=== PATIENT | female | born 1995 | race Caucasian/White ===

== ENCOUNTER 2017-03-27 22:13 | Emergency (ER) | payer SELFPAY ==
[~2017-03-27] VITALS: Ht 170.2 cm; Wt 56.7 kg
[2017-03-27] MEDS ORDERED: IBUPROFEN600 MG ORAL (23:55)
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
[2017-03-27 23:59] VITALS: BP 139/102
--- NOTE | 2017-03-28 11:07 | Diagnostic Imaging Report ---
Indication: And trauma Technique: Continuous helical CT scanning of the head was performed without intravenous contrast material. Axial and coronal 5 mm sections were generated. Radiation dose was minimized using automated exposure control Dose: Total Dose Length Product - DLP 1263.[address] Dose Index - CTDIvol(s) 70.38 mGy. Comparison: none Findings: The ventricular system is normal in size and configuration. There is no shift of midline structures. No abnormal extra-axial fluid collections are noted. There is no evidence of intracerebral bleeding. No other abnormal high or low density areas are noted within the brain. Intact calvarium. There is a nasal fracture. Visualized orbits and sinuses are unremarkable. Impression: Nasal fracture Negative for acute intracranial bleed or mass effect This agrees with the preliminary interpretation provided overnight by [facility] service. The CT scanner at [facility] is accredited by the [employer] and the scans are performed using protocols designed to limit radiation exposure to as low as reasonably achievable to attain images of sufficient resolution adequate for diagnostic evaluation.
== END 2017-03-28 00:10 | disposition home or self-care (01) ==
LOC: EDBD 22:13 → EMR 22:31
DX: S02.2XXA Fracture of nasal bones, initial encounter for closed fracture (principal); S00.531A Contusion of lip, initial encounter; V43.52XA Car driver injured in collision with other type car in traffic accident, initial encounter; Y92.410 Unspecified street and highway as the place of occurrence of the external cause
CPT/HCPCS: 70450; 99284